=== PATIENT | male | born 1965 | race Caucasian/White ===

== ENCOUNTER 2016-11-19 14:49 | Emergency (ER) | payer BC ==
[~2016-11-19] VITALS: Ht 177.8 cm; Wt 77.7 kg
[~2016-11-19 14:49] MED LIST: FLEXERIL10 MG PO; LIDODERM 5% P1 PATCH TD; NAPROSYN500 MG PO; NO HOME MEDS; NORCO 5/3251 TABLET PO; VALIUM5 MG PO
[2016-11-19 15:24] LABS: HEMATOCRIT 45.5 % (38.0-50.0); MCH 29.1 PG (29.0-34.0); MCHC 34.1 G/DL (30.0-36.0); MCV 85.5 FL (86-99); MEAN PLAT.VOLUME 10.8 uM^3 (9.0-12.4); PLATELET COUNT 168 K/uL (156-360); RBC DIS.WIDTH-CV 12.5 % (11.8-14.6); RBC DIS.WIDTH-SD 38.7 % (39-53); RED BLOOD COUNT 5.32 M/uL (4.00-5.50); WHITE BLOOD COUNT 7.7 K/uL (4.1-10.2)
[2016-11-19 15:34] LABS: CHLORIDE 103 mEq/L (99-109); POTASSIUM 4.2 mEq/L (3.7-5.4); SODIUM 140 mEq/L (136-147)
[2016-11-19 15:36] LABS: GLUCOSE 109 mg/dL (70-99)
[2016-11-19 15:37] LABS: ANION GAP 11 MEQ/L (2-14)
[2016-11-19 15:39] LABS: SERUM ETHYL ALCOHOL < 10 mg/dL
[2016-11-19 15:40] LABS: GFR ESTIMATE (CALCULATED) > 59 mL/min/
[2016-11-19 15:41] LABS: UREA NITROGEN (BUN) 13 mg/dL (9-23)
[2016-11-19 17:26] LABS: AMPHETAMINE NEGATIVE (500 ng/mL); BARBITURATES NEGATIVE (200 ng/mL); BENZODIAZEPINES PRESUMPTIVE POSITIVE (150 ng/mL); COCAINE NEGATIVE (150 ng/mL); METHADONE NEGATIVE (200 ng/mL); METHAMPHETAMINE PRESUMPTIVE POSITIVE (500 ng/mL); OPIATES (MORPHINE) NEGATIVE (100 ng/mL); OXYCODONE NEGATIVE (100 ng/mL); PHENCYCLIDINE NEGATIVE (25 ng/mL); PROPOXYPHENE NEGATIVE (300 ng/mL); THC CANNABINOIDS NEGATIVE (50 ng/mL); TRICYCLIC ANTIDEPRESSANTS NEGATIVE (300 ng/mL)
[2016-11-19 17:28] LABS: ADD MEDTOX COMMENT Y
[2016-11-19 18:04] LABS: BENZODIAZEPINES QUANT VALUE 0 NG/ML; BENZODIAZEPINES, URINE SCREEN Negative (200 ng/mL)
[2016-11-19 18:15] VITALS: BP 159/104
[2016-11-19 19:48] LABS: INTERNAL CONTROLS VALID? YES
== END 2016-11-19 18:16 | disposition home or self-care (01) ==
LOC: EME 14:49
DX: F32.9 Major depressive disorder, single episode, unspecified (principal); F43.23 Adjustment disorder with mixed anxiety and depressed mood; Z88.1 Allergy status to other antibiotic agents
CPT/HCPCS: 80048; 84999; 85027; 90839; 99281; 99285; G0480

== ENCOUNTER → 2017-11-02 | Outpatient (CLI) | payer BC | END | disposition home or self-care (01) | LOC: CDC 10:14 | DX: A69.20 Lyme disease, unspecified (principal) | CPT/HCPCS: 93000 ==

== ENCOUNTER → 2017-12-09 | Outpatient (CLI) | payer BC | END | disposition home or self-care (01) | LOC: CDC 09:49 | DX: A69.20 Lyme disease, unspecified (principal) | CPT/HCPCS: 93000 ==

== ENCOUNTER 2018-05-15 11:06 | Emergency (ER) | payer OTHER, BC ==
[~2018-05-15] VITALS: Ht 177.8 cm; Wt 84.3 kg
[2018-05-15] MEDS ORDERED: KEFLEX500 MG PO (14:11)
[2018-05-15 15:17] VITALS: BP 136/83
== END 2018-05-15 15:18 | disposition home or self-care (01) ==
LOC: EME 11:06
PROC: 0HQFXZZ Repair Right Hand Skin, External Approach (ICD-10-PCS; principal; 2018-05-15)
DX: S66.122A Laceration of flexor muscle, fascia and tendon of right middle finger at wrist and hand level, initial encounter (principal); W26.8XXA Contact with other sharp object(s), not elsewhere classified, initial encounter; Z88.1 Allergy status to other antibiotic agents
CPT/HCPCS: 73130; 99281; 99283